=== PATIENT | male | born 2000 | race Two or more races ===

== ENCOUNTER 2024-11-14 06:06 | Emergency (ER) | payer MEDICAID, OTHER ==
[~2024-11-14] VITALS: Ht 167.6 cm; Wt 96.7 kg
[2024-11-14 06:09] VITALS: BP 128/88; PULSE 93; RESP 16; O2SAT 96
--- NOTE | 2024-11-14 07:08 | ED.PDOC ---
GI ASSESSMENT HPI Comments 24 year old male presents to the ED with a chief complaint of epigastric pain onset today around 05:00. Patient states he woke up today around 05:00 experiencing epigastric pain as well as nausea/vomiting. Patient describes the pain as a sharp, stabbing sensation. Denies PMHX as well as diarrhea, constipation, chest pain, shortness of breath, dysuria, hematuria, dizziness. No other symptoms or modifying factors present at this time. Chief Complaint: Abdominal Pain Time Seen by MD: 06:31 Reviewed Notes: Medications, Allergies Allergies: Coded Allergies: NO KNOWN ALLERGIES (Unverified , 11/14/24) Information Source: Patient Mode of Arrival: Ambulatory Timing: Hours Duration: Since onset Prehospital treatment: None Quality: Sharp Vomitus: None Severity: Moderate Recent: None Recent Hx of: None Pain Location: Epigastric Modifying Factors: Nothing Associated sign and symptoms: Nausea, Vomiting, Abdominal Pain Past Medical History PAST MEDICAL HISTORY: Denies Surgical History: Denies all surgeries Family History Family History: Unknown Social History Smoker: Non-Smoker Alcohol: Denies ETOH Use Drugs: Denies Drug Use Lives In: Home Constitutional: denies: chills, diaphoresis, fatigue, fever, malaise, sweats, weakness, others EENTM: denies: blurred vision, double vision, ear bleeding, ear discharge, ear drainage, ear pain, ear ringing, eye pain, eye redness, hearing loss, mouth pain, mouth swelling, nasal discharge, nose bleeding, nose congestion, nose pain, photophobia, tearing, throat pain, throat swelling, voice changes, others Respiratory: denies: cough, hemoptysis, orthopnea, SOB at rest, shortness of breath, SOB with excertion, stridor, wheezing, others Cardiovascular: denies: chest pain, dizzy spells, diaphoresis, Dyspnea on exertion, edema, irregular heart beat, left arm pain, lightheadedness, palpitations, PND, syncope, others Gastrointestinal: reports: abdominal pain, nausea, vomiting; denies: abdomen distended, blood streaked bowels, constipated, diarrhea, dysphagia, difficulty swallowing, hematemesis, melena, poor appetite, poor fluid intake, rectal bleeding, rectal pain, others Genitourinary: denies: burning, dysuria, flank pain, frequency, hematuria, incontinence, penile discharge, penile sore, pain, testicle pain, testicle swelling, urgency, others Neurological: denies: dizziness, fainting, headache, left sided numbness, left sided weakness, numbness, paresthesia, pre-existing deficit, right sided numbness, right sided weakness, seizure, speech problems, tingling, tremors, weakness, others Musculoskeletal: denies: back pain, gout, joint pain, joint swelling, muscle pain, muscle stiffness, neck pain, others Integumetry: denies: bruises, change in color, change in hair/nails, dryness, laceration, lesions, lumps, rash, wounds, others Allergic/Immunocompromised: denies: Difficulty Healing, Frequent Infections, Hives, Itching, others Hematologic/Lymphatic: denies: anemia, blood clots, easy bleeding, easy bruising, swollen glands, others Endocrine: denies: excessive hunger, excessive sweating, excessive thirst, excessive urination, flushing, intolerance to cold, intolerance to heat, unexplained weight gain, unexplained weight loss, others Psychiatric: denies: anxiety, bipolar disorder, depression, hopeless, panic disorder, schizophrenia, sleepless, suicidal, others All Other Systems: Reviewed and Negative Physical Exam General Appearance: Mild Distress HEENT: Normal ENT Inspection, Pharynx Normal, TMs Normal Neck: Full Range of Motion, Non-Tender, Normal, Normal Inspection Respiratory: Chest Non-Tender, Lungs Clear, No Accessory Muscle Use, No Respiratory Distress, Normal Breath Sounds Cardiovascular: No Edema, No JVD, No Murmur, No Gallop, Normal Peripheral Pulses, Regular Rate/Rhythm Breast Exam: Deferred Gastrointestinal: No Organomegaly, Non Tender, No Pulsatile Mass, Normal Bowel Sounds, Soft Genitalia: Deferred Pelvic: Deferred Rectal: Deferred Extremities: No calf tenderness, Normal capillary refill, Normal inspection, Normal range of motion, Non-tender, No pedal edema Musculoskeletal : Apperance: Normal Neurologic: Alert, retail account representative II-XII nml as Tested, No Motor Deficits, Normal Affect, Normal Mood, No Sensory Deficits Cerebellar Function: Normal Reflexes: Normal Skin: Dry, Normal Color, Warm Peripheral Pulses: 3+ Radial (R), 3+ Radial (L) Lymphatic: No Adenopathy Was a procedure done? Was a procedure done?: No GI differential Dx Differential Diagnosis: Constipation, Diverticular disease, Esophagitis, Gastritis/PUD, Gastroenteritis X-Ray, Labs, Meds, VS Vital Signs Date Time Temp Pulse Resp B/P (MAP) Pulse Ox O2 Delivery O2 Flow Rate FiO2 11/14/24 06:09 97.6 93 16 128/88 (101) 96 Patient alert. Vitals stable. Answering all questions. Possible gastritis. GI cocktail helped the patient. Was given prescription of Protonix. Saturation pristine on room air. Abdomen is soft nontender. No leg swelling. No chest pain. No discoloration. Explained to the patient. Was told to follow up with his primary care physician. Was told to come back if there is any problem. Time of 1ST Reevaluation: 07:01 Reevaluation 1ST: Improved Patient Education/Counseling: Diagnosis, Treatment, Prognosis Family Education/Counseling: No Family Present Additional Information I reviewed the following notes from patient's past medical encounters: none The following tests were ordered, and results were reviewed by me: CBC, BMP, DRUG SCREEN I discussed treatment and results with medical personnel and patient Departure 1 Departure Time of Disposition: 17:21 Impression: Primary Impression: Gastritis Qualified Codes: K29.00 - Acute gastritis without bleeding Disposition: 01 HOME / SELF CARE / HOMELESS Condition: Good e-Prescriptions Pantoprazole Sodium Sesquihydr (Protonix) 40 Mg Tab 40 MG PO DAILY for 5 Days, #5 TAB Prov: ASHTYN SLATER MD 11/14/24 Discharged With: Self Critical Care Note Critical Care Time?: No Stability Stability form required: No Heart Score Heart Score: Heart Score Response (Comments) Value History N/A 0 EKG N/A 0 Age N/A 0 Risk Factors N/A 0 Troponin N/A 0 Total 0 I personally scribed for ASHTYN SLATER MD ([email or web address]) on 11/14/24 at 07:08. Electronically submitted by Rowan Bolanos ([email or web address]). I personally scribed for ASHTYN SLATER MD ([email or web address]) on 11/14/24 at 07:28. Electronically submitted by Rowan Bolanos ([email or web address]). ASHTYN SLATER MD Nov 14, 2024 07:08
[2024-11-14] MEDS ORDERED: MAALOX PLUS or MAALOX 30 ML PO ONE (07:15)
[2024-11-14] MEDS ORDERED: LIDOCAINE VISCOUS 2% 15ML UD PO ONE (07:15)
[2024-11-14] MEDS ORDERED: DONNATAL 5ml ORAL Elix (BELLADONNA ALK-PHENOBARB) PO ONE (07:15)
[2024-11-14] MEDS ORDERED: PANT40TA2 PO (17:22)
== END 2024-11-14 07:58 | disposition home or self-care (01) ==
LOC: ER 06:06
DX: K29.70 Gastritis, unspecified, without bleeding (principal)

== ENCOUNTER 2025-07-20 11:15 | Inpatient (IN) | payer MEDICAID ==
[~2025-07-20] VITALS: Ht 170.2 cm; Wt 102.2 kg
[~2025-07-20 11:15] MED LIST: PANT40TA2 PO
--- NOTE | 2025-07-20 11:24 | ED.PDOC ---
GI ASSESSMENT HPI Comments This is a 24 year old male MIAH presenting to the ED with chief complaint of abdominal pain. Patient reports that he had sudden sharp abdominal pain this morning after waking up with associated nausea and vomiting. Patient describes his pain as if his "stomach exploded." Patient denies any diarrhea, fever, chills, dizziness, chest pain, or SOB. Time Seen by MD: 11:22 Reviewed Notes: Nurses Notes, Vice President Of Talent Management Notes, Medications, Allergies Allergies: Coded Allergies: NO KNOWN ALLERGIES (Unverified , 11/14/24) Home Meds Active Scripts Pantoprazole Sodium Sesquihydr (Protonix) 40 Mg Tab, 40 MG PO DAILY for 5 Days, #5 TAB Prov:ASHTYN SLATER MD 11/14/24 Information Source: Patient, Emergency Med Personnel Mode of Arrival: EMS Timing: Hours Duration: Since onset Prehospital treatment: None Quality: Sharp Vomitus: Watery Stool: Normal Severity: Moderate Recent: None Recent Hx of: None Pain Location: Diffuse Modifying Factors: Nothing Associated sign and symptoms: Nausea, Vomiting, Abdominal Pain Past Medical History PAST MEDICAL HISTORY: Denies Surgical History: Denies all surgeries Family History Family History: Reviewed,noncontributory to illness, Unknown Social History Smoker: Non-Smoker Alcohol: Denies ETOH Use Drugs: Denies Drug Use Lives In: Home Constitutional: denies: chills, diaphoresis, fatigue, fever, malaise, sweats, weakness, others EENTM: denies: blurred vision, double vision, ear bleeding, ear discharge, ear drainage, ear pain, ear ringing, eye pain, eye redness, hearing loss, mouth pain, mouth swelling, nasal discharge, nose bleeding, nose congestion, nose pain, photophobia, tearing, throat pain, throat swelling, voice changes, others Respiratory: denies: cough, hemoptysis, orthopnea, SOB at rest, shortness of breath, SOB with excertion, stridor, wheezing, others Cardiovascular: denies: chest pain, dizzy spells, diaphoresis, Dyspnea on exertion, edema, irregular heart beat, left arm pain, lightheadedness, palpitations, PND, syncope, others Gastrointestinal: reports: abdominal pain, nausea, vomiting; denies: abdomen distended, blood streaked bowels, constipated, diarrhea, dysphagia, difficulty swallowing, hematemesis, melena, poor appetite, poor fluid intake, rectal bleeding, rectal pain, others Genitourinary: denies: burning, dysuria, flank pain, frequency, hematuria, incontinence, penile discharge, penile sore, pain, testicle pain, testicle swelling, urgency, others Neurological: denies: dizziness, fainting, headache, left sided numbness, left sided weakness, numbness, paresthesia, pre-existing deficit, right sided numbness, right sided weakness, seizure, speech problems, tingling, tremors, weakness, others Musculoskeletal: denies: back pain, gout, joint pain, joint swelling, muscle pain, muscle stiffness, neck pain, others Integumetry: denies: bruises, change in color, change in hair/nails, dryness, laceration, lesions, lumps, rash, wounds, others Allergic/Immunocompromised: denies: Difficulty Healing, Frequent Infections, Hives, Itching, others Hematologic/Lymphatic: denies: anemia, blood clots, easy bleeding, easy bruising, swollen glands, others Endocrine: denies: excessive hunger, excessive sweating, excessive thirst, excessive urination, flushing, intolerance to cold, intolerance to heat, unexplained weight gain, unexplained weight loss, others Psychiatric: denies: anxiety, bipolar disorder, depression, hopeless, panic disorder, schizophrenia, sleepless, suicidal, others All Other Systems: Reviewed and Negative Physical Exam General Appearance: Moderate Distress, Normal HEENT: Normal ENT Inspection, Pharynx Normal, TMs Normal Neck: Full Range of Motion, Non-Tender, Normal, Normal Inspection Respiratory: Chest Non-Tender, Lungs Clear, No Accessory Muscle Use, No Respiratory Distress, Normal Breath Sounds Cardiovascular: No Edema, No JVD, No Murmur, No Gallop, Normal Peripheral P ulses, Regular Rate/Rhythm Breast Exam: Deferred Gastrointestinal: No Organomegaly, Non Tender, No Pulsatile Mass, Normal Bowel Sounds, Soft Genitalia: Deferred Pelvic: Deferred Rectal: Deferred Extremities: No calf tenderness, Normal capillary refill, Normal inspection, Normal range of motion, Non-tender, No pedal edema Musculoskeletal : Apperance: Normal Neurologic: Alert, car repairer II-XII nml as Tested, No Motor Deficits, Normal Affect, Normal Mood, No Sensory Deficits Cerebellar Function: Normal Reflexes: Normal Skin: Dry, Normal Color, Warm Peripheral Pulses: 3+ Radial (R), 3+ Radial (L) Lymphatic: No Adenopathy Was a procedure done? Was a procedure done?: No GI differential Dx Differential Diagnosis: Constipation, Diverticular disease, Esophagitis, Gastritis/PUD, Gastroenteritis X-Ray, Labs, Meds, VS Vital Signs Date Time Temp Pulse Resp B/P (MAP) Pulse Ox O2 Delivery O2 Flow Rate FiO2 07/20/25 11:21 98.1 66 16 133/84 99 98.1 Lab Test 07/20/25 11:25 Range/Units White Blood Count 11.9 H 4.4-10.8 10^3/uL Red Blood Count 5.14 4.5-5.90 10^6/uL Hemoglobin 15.2 13.5-17.5 g/dL Hematocrit 44.8 41.0-53.0 % Mean Corpuscular Volume 87.2 80.0-100.0 fL Mean Corpuscular Hemoglobin 29.6 28.0-32.0 pg Mean Corpuscular Hemoglobin Concent 33.9 32.0-36.0 g/dL Red Cell Distribution Width 13.2 11.8-14.3 % Platelet Count 252 140-450 10^3/uL Mean Platelet Volume 10.2 6.9-10.8 fL Neutrophils (%) (Auto) 84.4 H 37.0-80.0 % Lymphocytes (%) (Auto) 11.9 10.0-50.0 % Monocytes (%) (Auto) 2.3 0.0-12.0 % Eosinophils (%) (Auto) 1.0 0.0-7.0 % Basophils (%) (Auto) 0.4 0.0-2.0 % Neutrophils # (Auto) 10.0 H 1.6-8.6 10 ^3/uL Lymphocytes # (Auto) 1.4 0.4-5.4 10 ^3/uL Monocytes # (Auto) 0.3 0-1.3 10 ^3/uL Eosinophils # (Auto) 0.1 0-0.8 10 ^3/uL Basophils # (Auto) 0 0-0.2 10 ^3/uL Nucleated Red Blood Cells 0.0 % Sodium Level 140 136-145 mmol/L Potassium Level 4.2 3.5-5.1 mmol/L Chloride Level 104 98-107 mmol/L Carbon Dioxide Level 27 20-31 mmol/L Anion Gap 9 5-15 Blood Urea Nitrogen 10 9-23 mg/dL Creatinine 1.06 0.700-1.30 mg/dL Glomerular Filtration Rate Calc 100 >90 mL/min BUN/Creatinine Ratio 9.4 L 10.0-20.0 Serum Glucose 169 H 74-106 mg/dL Calcium Level 9.2 8.7-10.4 mg/dL Patient alert. Complaining of abdominal pain. WBC elevated. Blood sugar elevated. Hemoglobin within normal limits. Abdomen is soft. Explained to the patient. Continue monitoring. Time of 1ST Reevaluation: 12:21 Reevaluation 1ST: Unchanged Patient Education/Counseling: Diagnosis, Treatment Family Education/Counseling: No Family Present SEPSIS Sepsis Screen Physician Orders Drug Screen (07/20/25 11:21) Ct Ab Pel Wo Con-No Oral Or Iv (07/20/25 12:43) Vital Signs Date Time Temp Pulse Resp B/P (MAP) Pulse Ox O2 Delivery O2 Flow Rate FiO2 07/20/25 11:21 98.1 66 16 133/84 99 98.1 Laboratory Tests Test 07/20/25 11:25 White Blood Count 11.9 10^3/uL (4.4-10.8) H Departure 1 Departure Time of Disposition: 13:38 Impression: Primary Impression: Acute abdominal pain Disposition: ADMITTED INPATIENT Admit to: Med Surg Condition: Guarded Critical Care Note Critical Care Time?: No Stability Stability form required: No Heart Score Heart Score: Heart Score Response (Comments) Value History N/A 0 EKG N/A 0 Age N/A 0 Risk Factors N/A 0 Troponin N/A 0 Total 0 I personally scribed for ASHTYN SALTER MD ([email or web address]) on 07/20/25 at 11:24. Electronically submitted by Jayme Sanchez ([email or web address]). ASHTYN SLATER MD Jul 20, 2025 11:24
[2025-07-20 11:48] LABS: Hematocrit 44.8 % (41.0-53.0); Hemoglobin 15.2 g/dL (13.5-17.5); Mean Corpuscular Hemoglobin 29.6 pg (28.0-32.0); Mean Corpuscular Volume 87.2 fL (80.0-100.0); Nucleated Red Blood Cells % 0.0 %
[2025-07-20 11:54] LABS: Chloride 104 mmol/L (98-107); Potassium 4.2 mmol/L (3.5-5.1); Sodium 140 mmol/L (136-145)
[2025-07-20 11:55] LABS: Anion Gap 9 (5-15); Calcium 9.2 mg/dL (8.7-10.4); Carbon Dioxide 27 mmol/L (20-31)
[2025-07-20 12:00] LABS: BUN/Creatinine Ratio 9.4 (10.0-20.0); Blood Urea Nitrogen 10 mg/dL (9-23)
[2025-07-20 12:01] LABS: Glucose 169 mg/dL (74-106)
--- NOTE | 2025-07-20 13:41 | DVH ---
EXAM: CT CT AB PEL WO CON-NO ORAL OR IV INDICATION: colitis TECHNIQUE: Volumetric multidetector CT images of the abdomen and pelvis were obtained without contras t. All CT scans at this facility use dose modulation, iterative reconstruction, and/or weight based d osing when appropriate to reduce radiation dose to as low as reasonably achievable. COMPARISON: None FINDINGS: [LOWER CHEST]: The partially visualized lung bases are clear without a pleural effusion. The cardiac size is normal without pericardial effusion. [LIVER]: Hepatic steatosis. [GALLBLADDER AND BILIARY TREE]: No cholelithiasis. Question inconspicuous intramural wall edema of th e gallbladder. [SPLEEN]: Unremarkable. [PANCREAS]: Unremarkable. [ADRENAL GLANDS]: Unremarkable [KIDNEYS]: No hydronephrosis. No nephroureterolithiasis. [BLADDER]: Unremarkable for the degree distention. [REPRODUCTIVE ORGANS]: Unremarkable. [BOWEL/MESENTERY]: Stomach is normal. No CT evidence of bowel obstruction. [ASCITES]: Absent [LYMPHADENOPATHY]: Multiple likely reactive small bowel mesenteric root and ileocolic lymph nodes [VASCULATURE]: No aneurysmal dilatation. [ABDOMINAL WALL]: Unremarkable. [MUSCULOSKELETAL]: No acute fracture or aggressive focal osseous lesion. IMPRESSION: 1. No CT evidence of an acute abdominal/pelvic process. 2. No CT evidence of colitis. 3. Question inconspicuous intramural wall edema of the gallbladder. Consider correlation with right u pper quadrant ultrasound. 4. Question hepatic steatosis.
[2025-07-20 15:15] LABS: Amphetamine Screen, Urine Neg (NEGATIVE); Barbiturate Scree,Urine Neg (NEGATIVE); Benzodiazephine Screen, Urine Neg (NEGATIVE); Cannabinoid Screen, Urine Neg (NEGATIVE); Cocaine Screen, Urine Pos (NEGATIVE); Opiate Scree,Urine Neg (NEGATIVE); Phencyclidine Screen, Urine Neg (NEGATIVE)
[2025-07-20] MEDS: SODIUM CHLORIDE 0.9% 1,000 ML IV SCH (15:30)
[2025-07-20] MEDS ORDERED: ACETAMINOPHEN 325 MG TAB PO PRN (15:30)
[2025-07-20] MEDS ORDERED: NITROGLYCERIN 0.4 MG SL TAB SL PRN (15:30)
[2025-07-20] MEDS ORDERED: MORPHINE SULFATE INJ 2 MG/ml SYRG IV PRN (15:30)
--- NOTE | 2025-07-20 16:34 | DVH ---
ULTRASOUND ABDOMEN, LIMITED RIGHT UPPER QUADRANT: REASON FOR EXAM: alejandro. Right upper quadrant pain. TECHNIQUE: Real-time sector scans in the transverse and longitudinal planes were obtained through th e right upper quadrant of the abdomen. FINDINGS: The liver is of normal size and contour. The liver is profoundly echogenic. There is a 2.4 x 1.5 x 1.2 cm hypoechoic area of hepatic parenchyma adjacent to the gallbladder likely representing focal fatty sparing without hypervascularity on color Doppler. There is hepatopetal flow in the port al vein. There is no intrahepatic nor extrahepatic biliary ductal dilatation. The common bile duct measures 5 mm. There are gallstones within the gallbladder. The gallbladder wall is thickened at 5 mm. There is a sonographic morales's sign. The visualized portion of the pancreas is unremarkable. The right kidney measures 11.1 cm. No hydronephrosis or nephrolithiasis is identified. There is no evidence of right renal mass or cyst. The visualized portions of the abdominal aorta demonstrate no evidence of aneurysmal dilatation. The visualized inferior vena cava is unremarkable. There is no free fluid identified in the right upper quadrant. IMPRESSION: wall thickeningCholelithiasis with gallbladder and a sonographic Morales's sign. Findings are consiste nt with acute cholecystitis. Correlate clinically.
--- NOTE | 2025-07-20 17:07 | DVHPNRES ---
Progress Note Date Seen: Jul 20, 2025 Resident Creating Document: ALBERT CEDILLO RESIDENT Medical Necessity Reason Pt with a Central, PICC or Fol: No Subjective Review of Systems Parker Ball is a 24-year-old male presented to the ED with the complaint of pain in the abdomen. the patient mentions he has had pain in the abdomen on and off since the last 1 year, but it got worse this morning which is why he came to the ED. He mentions the pain to be mostly in the upper abdomen. It is not associated with any aggravating or relieving factors. Patient also had nausea and 2-3 episodes of vomiting this morning and has not eaten anything since then. CT abdomen showed questionable inconspicuous intramural wall edema of gallbladder. Gallbladder ultrasound was also ordered to evaluate further. Patient was admitted for further evaluation and management. Past medical history: no significant past history Past surgical history: surgery on right arm 15 years back for fracture Social & Personal history: lives at home with family, vapes since 5 years, alcohol consumption around 5-6 drinks per week, mentions remote use of marijuana in the past Allergies: on allergies Patient seen and examined at bedside. Patient is alert and oriented to time, place person and responding to all questions. Eyes: No Pain, No Vision change, No Conjunctivae inflammation, No Eyelid inflammation, No Redness ENT: No Ear pain, No Ear discharge, No Nose pain, No Nose discharge, No Nose congestion, No Mouth pain, No Mouth swelling, No Throat pain, No Throat swelling Cardiovascular: No Chest Pain, No Palpitations, No Orthopnea, No Paroxysmal No Dyspnea, No Edema, No Lt Headedness Respiratory: No Cough, No Dry, No Shortness of breath, No SOB with exertion, No Wheezing, No Hemoptysis, No Pleuritic Pain, No Sputum Gastrointestinal: No Nausea, No Vomiting, Abdominal Pain, No Diarrhea, No Constipation, No Melena, No Hematochezia Genitourinary: No Dysuria, No Frequency, No Incontinence, No Hematuria, No Retention Objective vital signs Vital Sign Date Time Temp Pulse Resp B/P (MAP) Pulse Ox O2 Delivery O2 Flow Rate FiO2 07/20/25 14:00 79 16 130/81 (97) 95 07/20/25 11:21 98.1 98.1 medications Current Medications Medications Dose Ordered Sig/Wendy Route Start Time Stop Time Status Last Admin Dose Admin Sodium Chloride 1,000 ml @ 60 mls/hr [id number] IV 07/20/25 15:30 Acetaminophen 650 mg Q6HP PRN PO 07/20/25 15:30 Nitroglycerin 0.4 mg Q5MINP PRN SL 07/20/25 15:30 Morphine Sulfate 2 mg Q30M PRN IV 07/20/25 15:30 Ceftriaxone Sodium 50 ml @ 100 mls/hr DAILY@09 IV 07/21/25 09:00 Metronidazole 100 ml @ 100 mls/hr Q8HR IV 07/20/25 22:00 Examination General Appearance: Cooperative. Well developed. Well nourished. NAD Head Exam: Normal inspection Neck Exam: Normal inspection. Non-tender. Normal alignment Pulmonary/Respiratory: Chest non-tender. Clear bilateral breath sounds, no crackles, no wheezing. Cardiovascular/Chest: Regular rate and rhythm. No murmurs. No JVD. Peripheral Pulses: 2+ Radial (R). 2+ Radial (L). 2+ Pedal (R). 2+ Pedal (L) Abdominal Exam: generalized abdominal tenderness, Normal bowel sounds. Soft. normal abdomen, no visible veins, Nontender. No hepatospenomegaly. No masses Ankle Exam: Negative ankle edema Lower extremities: Negative lower extremity edema Neuro/Mental Status: A&O x4. Coherent. Thoughts/Psych: Normal thought pattern. Appropriate mood and affect. Good judgement and insight Skin Exam: Normal inspection. Normal color. Warm. Dry laboratory and microbiology Laboratory Tests 07/20/25 11:25 Test 07/20/25 11:25 Range/Units Serum Glucose 169 H 74-106 mg/dL Labs and/or images reviewed: Labs reviewed by me, Image(s) reviewed by me Problem List/Assessment/Plan Problem List/Assessment/Plan Acute calculus cholecystitis Symptomatic cholelithiasis -med surge -keep NPO -IVF -iv ceftriaxone and flagyl -CT abdomen /pelvis and ultrasound showed findings suggestive of cholecystitis -Surgical consult Polysubstance abuse ( cocaine, fentanyl, marijuana ) -Consult regarding cessation for more than 17 minutes PUD prophylaxis: protonix DVT prophylaxis: not Indicated Goals of care: Full code, discussed for >23 minutes Plan discussed with patient Plan discussed with Dr Benton Plan discussed with: Patient My Orders My Orders Orders - ALBERT CEDILLO RESIDENT Procedure Category Date Status Time Admit ADMIT 07/20/25 Transmitted 15:19 Allergies [facility] 07/20/25 In Process 15:19 Code Status CODE 07/20/25 Transmitted 15:19 Sodium Chloride 0.9% [facility] 07/20/25 In Process 15:30 Complete Blood Count LAB 07/21/25 Verified 04:00 Comprehensive LAB 07/21/25 Verified Metabolic Panel 04:00 Npo (Nothing By DIET 07/20/25 Transmitted Mouth) Diet Dinner Condition: Unstable [facility] 07/20/25 In Process 15:19 Acetaminophen Tablet [facility] 07/20/25 In Process (Tylenol Tablet) 15:30 Nitroglycerin [facility] 07/20/25 In Process Sublingual (Ntrostat 15:30 Morphine Sulfate [facility] 07/20/25 In Process Injection 15:30 Oxygen By Nasal RT 07/20/25 Transmitted Cannula 15:19 Stat Ekg For Chest [facility] 07/20/25 In Process Pain 15:19 Notify Md Of Changes [facility] 07/20/25 In Process From Base 15:19 Network Architect For [facility] 07/20/25 In Process 24 Hours 15:19 Emergency Dysrhythmia [facility] 07/20/25 In Process Protocol 15:19 Rhythm Strips Once [facility] 07/20/25 In Process Every Shift 15:19 * Surgical Consult CONS 07/20/25 Transmitted Urinalysis LAB 07/20/25 Logged 16:06 Acute Hepatitis Panel LAB 07/20/25 In Process 16:06 Ceftriaxone 1gm/50ml [facility] 07/21/25 In Process (Rocephin) 09:00 Metronidazole [facility] 07/20/25 In Process 500mg/100ml (Flagyl 22:00 Metronidazole [facility] 07/20/25 In Process 500mg/100ml (Flagyl 16:15 Electrocardigram EKG 07/21/25 Logged 04:00 Prothrombin Time W/ LAB 07/21/25 Verified INR 04:00 ALBERT CEDILLO RESIDENT Jul 20, 2025 17:07
--- NOTE | 2025-07-20 18:13 | DVH ---
EXAM: XY CHEST XRAY 1 VIEW TECHNIQUE: Single frontal chest radiograph CLINICAL HISTORY: pre op COMPARISON: None Findings/Impression: Frontal chest radiograph demonstrates no acute osseous or superficial soft tissue abnormalities. The trachea is midline. The cardiac silhouette and mediastinum are within normal limits. No pneumothorax, pleural effusions, or consolidations.
[2025-07-20] MEDS: PANTOPRAZOLE 40 MG TAB PO ONE (20:03)
[2025-07-20 21:45] LABS: Urine Protein, UAD Negative (Negative)
[2025-07-21] VITALS (10 sets, daily range): BP systolic 100–130; BP diastolic 67–77; PULSE 59–92; RESP 11–20; TEMP 97.8–98.2; O2SAT 95–100
[2025-07-21] MEDS: PANTOPRAZOLE 40 MG TAB PO SCH (05:45)
[2025-07-21 08:43] LABS: Hematocrit 41.8 % (41.0-53.0); Hemoglobin 14.3 g/dL (13.5-17.5); Mean Corpuscular Hemoglobin 29.6 pg (28.0-32.0); Mean Corpuscular Volume 86.7 fL (80.0-100.0); Nucleated Red Blood Cells % 0.1 %
[2025-07-21 08:57] LABS: INR 1.0 (0.9-1.15); Prothrombin Time 10.6 sec (9.3-11.8)
[2025-07-21 08:59] LABS: Alanine Aminotransferase 31 U/L (7-40); Albumin 4.3 g/dL (3.2-4.8); Alkaline Phosphatase 90 U/L (46-116); Anion Gap 8 (5-15); BUN/Creatinine Ratio 9.6 (10.0-20.0); Bilirubin, Total 0.8 mg/dL (0.2-1.0); Blood Urea Nitrogen 12 mg/dL (9-23); Calcium 9.2 mg/dL (8.7-10.4); Carbon Dioxide 31 mmol/L (20-31); Chloride 104 mmol/L (98-107); Glucose 98 mg/dL (74-106); Potassium 3.8 mmol/L (3.5-5.1); Sodium 143 mmol/L (136-145); Total Protein 7.2 g/dL (5.7-8.2)
[2025-07-21] MEDS ORDERED: PROPOFOL 10 MG/ML 20 ML IV ONE (12:03)
[2025-07-21] MEDS ORDERED: ROCURONIUM 10MG/ML 10ML VIAL IV ONE (12:03)
[2025-07-21] MEDS ORDERED: HYDROmorphone HCL 2 MG/ML VL/or syr ONE (12:03)
[2025-07-21] MEDS ORDERED: fentaNYL CITRATE 100 MCG/2 ML VL ONE (12:03)
--- NOTE | 2025-07-21 12:07 | DVHINCON2 ---
Consultation - Surgical Date Seen: Jul 21, 2025 Referring Physician Reason for Consultation Cholecystitis History of Present Illness History of Present Illness Mr. Ball is a 24-year-old male who presented to the ED yesterday with right upper quadrant abdominal pain, nausea, vomiting. States that he has had this pain episodes in the past, last year he had 7-8 episodes, but never this bad. Pain has been well controlled in the ED with narcotic pain meds medicines. Denies any fevers, chills, changes in urinary or stooling habits, acholic stools. Past Medical/Surgical History Past Medical/Surgical History PMH/PSH denies Family and Social History Family and Social History Family history noncontributory Vapes ETOH/drugs denies Allergies and medications Allergies: Coded Allergies: NO KNOWN ALLERGIES (Unverified , 11/14/24) Home Meds Active Scripts Pantoprazole Sodium Sesquihydr (Protonix) 40 Mg Tab, 40 MG PO DAILY for 5 Days, #5 TAB Prov:ASHTYN SLATER MD 11/14/24 Review of systems Review of Systems: HEENT:Normal, CVS:Normal, RESPIRATORY:Normal, GI:Abnormal (See HPI), :Normal (Vitor), MSK:Normal (Vitor's Vitor), NEURO:Normal Examination Vital signs Vital Signs Date Time Temp Pulse Resp B/P (MAP) Pulse Ox O2 Delivery O2 Flow Rate FiO2 07/21/25 09:52 97.9 59 16 100/67 (78) 98 97.9 07/21/25 06:06 Room Air* 0 21 Medications Current Medications Medications (Trade) Dose Ordered Sig/Wendy Route PRN Reason Start Time Stop Time Status Last Admin Sodium Chloride 1,000 ml @ 60 mls/hr [id number] IV 07/20/25 15:30 07/21/25 08:18 Acetaminophen (Tylenol Tablet) 650 mg Q6HP PRN PO PAIN SCALE 1-3 OR TEMP>100.4 07/20/25 15:30 Nitroglycerin (Ntrostat Sublingual) 0.4 mg Q5MINP PRN SL FOR CHEST PAIN 07/20/25 15:30 Morphine Sulfate 2 mg Q30M PRN IV FOR CHEST PAIN 07/20/25 15:30 Ceftriaxone Sodium 50 ml @ 100 mls/hr DAILY@09 IV 07/21/25 09:00 07/21/25 08:30 Metronidazole 100 ml @ 100 mls/hr Q8HR IV 07/20/25 22:00 07/21/25 05:43 Pantoprazole Sodium (Protonix Tablet) 40 mg DAILY@0600 PO 07/21/25 06:00 Laboratory Labs Test 07/21/25 08:18 07/20/25 16:47 07/20/25 11:25 07/20/25 11:21 Range/Units White Blood Count 8.9 # 4.4-10.8 10^3/uL Red Blood Count 4.82 4.5-5.90 10^6/uL Hemoglobin 14.3 13.5-17.5 g/dL Hematocrit 41.8 41.0-53.0 % Mean Corpuscular Volume 86.7 80.0-100.0 fL Mean Corpuscular Hemoglobin 29.6 28.0-32.0 pg Mean Corpuscular Hemoglobin Concent 34.2 32.0-36.0 g/dL Red Cell Distribution Width 13.0 11.8-14.3 % Platelet Count 245 140-450 10^3/uL Mean Platelet Volume 10.2 6.9-10.8 fL Neutrophils (%) (Auto) 55.4 37.0-80.0 % Lymphocytes (%) (Auto) 33.0 10.0-50.0 % Monocytes (%) (Auto) 7.5 0.0-12.0 % Eosinophils (%) (Auto) 3.1 0.0-7.0 % Basophils (%) (Auto) 1.0 0.0-2.0 % Neutrophils # (Auto) 4.9 1.6-8.6 10 ^3/uL Lymphocytes # (Auto) 2.9 0.4-5.4 10 ^3/uL Monocytes # (Auto) 0.7 0-1.3 10 ^3/uL Eosinophils # (Auto) 0.3 0-0.8 10 ^3/uL Basophils # (Auto) 0.1 0-0.2 10 ^3/uL Nucleated Red Blood Cells 0.1 % Prothrombin Time 10.6 9.3-11.8 sec Prothrombin Time INR 1.00 0.9-1.15 Sodium Level 143 136-145 mmol/L Potassium Level 3.8 3.5-5.1 mmol/L Chloride Level 104 98-107 mmol/L Carbon Dioxide Level 31 20-31 mmol/L Anion Gap 8 5-15 Blood Urea Nitrogen 12 9-23 mg/dL Creatinine 1.25 0.700-1.30 mg/dL Glomerular Filtration Rate Calc 82 >90 mL/min BUN/Creatinine Ratio 9.6 L 10.0-20.0 Serum Glucose 98 74-106 mg/dL Calcium Level 9.2 8.7-10.4 mg/dL Total Bilirubin 0.8 0.2-1.0 mg/dL Aspartate Amino Transferase (AST) 17 13-40 U/L Alanine Aminotransferase (ALT) 31 7-40 U/L Alkaline Phosphatase 90 46-116 U/L Total Protein 7.2 5.7-8.2 g/dL Albumin 4.3 3.2-4.8 g/dL Lipase 34 12-53 U/L Urine Color Yellow Yellow Urine Clarity Clear Clear Urine pH 5.5 5.0-9.0 Urine Specific [place] 1.027 1.001-1.035 Urine Protein Negative Negative Urine Ketones Negative Negative Urine Blood Negative Negative /uL Urine Nitrite Negative Negative Urine Bilirubin Negative Negative Urine Urobilinogen Normal Negative mg/dL Urine Leukocyte Esterase Negative Negative /uL Urine RBC 2 0 - 3 /hpf Urine Microscopic WBC < 1 0-3 /HPF Urine Squamous Epithelial Cells Few <5 /hpf Urine Calcium Oxalate Crystals Few None Seen Urine Bacteria None seen None Seen /hpf Urine Mucus Few None Seen Urine Glucose Normal Normal mg/dL Urine Opiates Screen Neg NEGATIVE Urine Fentanyl Screen Pos NEGATIVE Urine Barbiturates Screen Neg NEGATIVE Urine Phencyclidine Screen Neg NEGATIVE Urine Amphetamines Screen Neg NEGATIVE Urine Benzodiazepines Screen Neg NEGATIVE Urine Cocaine Screen Pos NEGATIVE Urine Cannabinoids Screen Neg NEGATIVE Examination: GENERAL:Normal, HEENT:Normal (No icterus), ABDOMEN:Abnormal (Soft, depressible, no scars, no hernias, right upper quadrant tenderness, no rebound no guarding) Problem List/Assessment/Plan Problems: (1) Acute cholecystitis Assessment and Plan Mr. Ball is a 24-year-old male who presented to the ED with abdominal pain, nausea, vomiting. Ultrasound was seen in his shows gallstone at the neck gallbladder and multiple other stones in the gallbladder wall lumen; there is also pericholecystic fluid and gallbladder wall thickening to 5.22 mm. On pr esentation patient had a white count of 12. Given this findings on imaging and physical exam patient has acute cholecystitis. He will benefit from laparoscopic cholecystectomy. Procedure, risks, benefits, complications, and alternatives discussed with the patient. Patient is agreeable with surgical plan. 1. On-call to the OR for laparoscopic cholecystectomy, possible open 2. NPO pending procedure 3. Pain and nausea control Plan discussed with Plan discussed with: Patient Visit Coding Surgery Date of Service if different f: Jul 21, 2025 Billing Provider: JAMA VERDIN MD Surgery Visit Codes: 53534 - INP CONSULT <110 MIN JAMA VERDIN MD Jul 21, 2025 12:07
[2025-07-21] MEDS: ceFAZolin 2 GM/D5W50ml 50 ML IV ONE (12:28)
[2025-07-21] MEDS ORDERED: ONDANSETRON HCL 4 MG/2 ML VIAL ONE (12:43)
[2025-07-21] MEDS: BUPIVACAINE 0.25% INJ 50ML VIAL ONE (12:47)
[2025-07-21] MEDS ORDERED: ONDANSETRON HCL 4 MG/2 ML VIAL IV PRN (14:15)
[2025-07-21] MEDS: SUCCINYLCHOLINE CHLORIDE 20 MG/ML 10ML VIAL IV ONE (14:21)
--- NOTE | 2025-07-21 14:23 | DVHOP2 ---
Operative Report - 2 Report Details Date: 07/21/25 Preop Diagnosis: Acute cholecystitis Postop Diagnosis: Same Surgeon: Hossein Ortiz MD Anesthesiologist: Dr. Holliday Anesthesia: General Consent: The patient was informed of the risks and benefits of the procedure. These include but are not limited to complications of anesthesia, postoperative infection, incomplete relief of symptoms, recurrence of symptoms, damage to blood vessels, nerves and tendons, deep venous thrombosis, pulmonary embolism and possible need for repeat surgery in the future. Complications: None Estimated Blood Loss: 5 mL Findings: Acutely inflamed gallbladder with omental adhesions to gallbladder containing loops of bowel Indications for Surgery: Acute cholecystitis Name of Procedure Performed Laparoscopic cholecystectomy Procedure Details Procedure Details: Upon arriving to the operating room the patient was transferred to the operating table and placed in the supine position with arms extended. General endotracheal anesthesia was induced. Time-out was observed. Patient was pre pped and draped in the standard sterile surgical fashion with chlorhexidine. I then made an infraumbilical curvilinear incision, and then dissected down to fascia. I grasped the umbilical stalk sequentially with Josiah clamps, until I got to the base of the umbilical stalk. I then gained entry to the peritoneal cavity utilizing Richardson technique. I then placed a fascia retention suture in [id number] fashion with an 0 Vicryl. I then placed the Richardson cannula and insufflated the peritoneal cavity to 15 mmHg. Patient tolerated insufflation. Camera was then inserted and entry site was surveyed, no injuries noted. I then placed 3 additional 5 mm ports at the epigastric area, the right midclavicular area below the ribs, and the right flank. The patient was then position in the reverse Trendelenburg position with right side up. Gallbladder dome was grasped with D&G graspers and elevated towards the right shoulder. Gallbladder was acutely inflamed with omentum containing loops of bowel was draped over the gallbladder. I then carefully dissected the omentum and the loops of bowel off of the gallbladder. I then identify the infundibulum of the gallbladder and grasped it with a 2nd D&G grasper. I then proceeded to open the peritoneum along the inferior border of the gallbladder on either side. I then identified Calot triangle. Calot triangle was fully skeletonized and 2 structures were visualized entering the gallbladder, the cystic duct and the cystic artery. Critical view was obtained. Artery was then double clipped proximally and once distally. The duct was then triple clipped proximally and once distally. I then transected both artery and duct. I then proceeded to dissect the gallbladder off of the liver plate with the electrocautery device. Once the gallbladder was completely off of the liver it was placed in the Endo-Catch bag and removed from the peritoneal cavity through the umbilical site. Gallbladder fossa was surveyed there was no bleeding. There was no bile spillage. At this point the surgery was concluded. 5 mm trocars were removed under direct vision. The fascia at the umbilical site was closed with the previously-placed 0 Vicryl stitch. All skin sites were closed with 4-0 Monocryl and Dermabond. Marcaine 0.25% was used as local anesthetic. All counts complete and correct at the end of the procedure. Patient was transferred to the PACU in stable condition Specimen: Gallbladder and contents Condition Stable Disposition Still a Patient HOSSEIN VERDIN MD Jul 21, 2025 14:23
[2025-07-21] MEDS: ACETAMINOPHEN IV 1000 MG/100ML (10MG/ML) IV PRN (15:00)
[2025-07-21] MEDS: ACETAMINOPHEN IV 100 ML IV ONE (15:18)
[2025-07-21] MEDS: HYDROmorphone HCL 2 MG/ML VL/or syr IV PRN (16:14)
[2025-07-21] MEDS: HYDROmorphone HCL 2 MG/ML VL/or syr ONE (16:17)
[2025-07-21] MEDS: IBUPROFEN 600 MG TAB PO SCH (17:55)
[2025-07-21] MEDS: ACETAMINOPHEN 325 MG TAB PO SCH (17:55)
--- NOTE | 2025-07-21 18:47 | DVHPNRES ---
Progress Note Date Seen: Jul 21, 2025 Resident Creating Document: ALBERT CEDILLO RESIDENT Medical Necessity Reason Pt with a Central, PICC or Fol: No Subjective Review of Systems Parker Ball is a 24-year-old male presented to the ED with the complaint of pain in the abdomen. the patient mentions he has had pain in the abdomen on and off since the last 1 year, but it got worse this morning which is why he came to the ED. He mentions the pain to be mostly in the upper abdomen. It is not associated with any aggravating or relieving factors. Patient also had nausea and 2-3 episodes of vomiting this morning and has not eaten anything since then. CT abdomen showed questionable inconspicuous intramural wall edema of gallbladder. Gallbladder ultrasound was also ordered to evaluate further. Patient was admitted for further evaluation and management. Past medical history: no significant past history Past surgical history: surgery on right arm 15 years back for fracture Social & Personal history: lives at home with family, vapes since 5 years, alcohol consumption around 5-6 drinks per week, mentions remote use of marijuana in the past Allergies: on allergies Patient seen and examined at bedside. Patient is alert and oriented to time, place person and responding to all questions. Eyes: No Pain, No Vision change, No Conjunctivae inflammation, No Eyelid inflammation, No Redness ENT: No Ear pain, No Ear discharge, No Nose pain, No Nose discharge, No Nose congestion, No Mouth pain, No Mouth swelling, No Throat pain, No Throat swelling Cardiovascular: No Chest Pain, No Palpitations, No Orthopnea, No Paroxysmal No Dyspnea, No Edema, No Lt Headedness Respiratory: No Cough, No Dry, No Shortness of breath, No SOB with exertion, No Wheezing, No Hemoptysis, No Pleuritic Pain, No Sputum Gastrointestinal: No Nausea, No Vomiting, Abdominal Pain, No Diarrhea, No Constipation, No Melena, No Hematochezia Genitourinary: No Dysuria, No Frequency, No Incontinence, No Hematuria, No Retention 07/21- Patient was seen this morning. All vitals were stable and labs within range. The patient did not complain of any abdominal pain. No adverse events were noted overnight. Surgery was consulted and they performed lap cholecystectomy with no perioperative complications. The patient is doing well post surgery. Objective vital signs Vital Sign Date Time Temp Pulse Resp B/P (MAP) Pulse Ox O2 Delivery O2 Flow Rate FiO2 07/21/25 17:00 97.8 61 18 130/69 (89) 98 97.8 07/21/25 16:13 Nasal Cannula 1.0 07/21/25 16:13 95 medications Current Medications Medications Dose Ordered Sig/Wendy Route Start Time Stop Time Status Last Admin Dose Admin Sodium Chloride 1,000 ml @ 60 mls/hr [id number] IV 07/20/25 15:30 07/21/25 08:18 60 MLS/HR Nitroglycerin 0.4 mg Q5MINP PRN SL 07/20/25 15:30 Morphine Sulfate 2 mg Q30M PRN IV 07/20/25 15:30 Ceftriaxone Sodium 50 ml @ 100 mls/hr DAILY@09 IV 07/21/25 09:00 07/21/25 08:30 100 MLS/HR Metronidazole 100 ml @ 100 mls/hr Q8HR IV 07/20/25 22:00 07/21/25 14:34 100 MLS/HR Pantoprazole Sodium 40 mg DAILY@0600 PO 07/21/25 06:00 Acetaminophen/ Hydrocodone Bitart 1 tab Q6HP PRN PO 07/21/25 14:15 Acetaminophen/ Hydrocodone Bitart 1 tab Q6HPRN PRN PO 07/21/25 14:15 Acetaminophen 650 mg Q6HR PO 07/21/25 18:00 07/21/25 17:55 650 MG Ibuprofen 600 mg Q6HR PO 07/21/25 18:00 07/21/25 17:55 600 MG Polyethylene Glycol 17 gm DAILY PO 07/22/25 10:00 Examination General Appearance: Cooperative. Well developed. Well nourished. NAD Head Exam: Normal inspection Neck Exam: Normal inspection. Non-tender. Normal alignment Pulmonary/Respiratory: Chest non-tender. Clear bilateral breath sounds, no crackles, no wheezing. Cardiovascular/Chest: Regular rate and rhythm. No murmurs. No JVD. Peripheral Pulses: 2+ Radial (R). 2+ Radial (L). 2+ Pedal (R). 2+ Pedal (L) Abdominal Exam: generalized abdominal tenderness, abdominal binder in place, Normal bowel sounds. Soft. normal abdomen, no visible veins, Nontender. No hepatospenomegaly. No masses Ankle Exam: Negative ankle edema Lower extremities: Negative lower extremity edema Neuro/Mental Status: A&O x4. Coherent. Thoughts/Psych: Normal thought pattern. Appropriate mood and affect. Good judgement and insight Skin Exam: Normal inspection. Normal color. Warm. Dry laboratory and microbiology Laboratory Tests 07/21/25 08:18 Test 07/21/25 08:18 Range/Units Serum Glucose 98 74-106 mg/dL Labs and/or images reviewed: Labs reviewed by me, Image(s) reviewed by me Problem List/Assessment/Plan Problem List/Assessment/Plan Acute calculus cholecystitis s/p lap cholecystectomy Symptomatic cholelithiasis -med surge -keep NPO -IVF -iv ceftriaxone and flagyl -CT abdomen /pelvis and ultrasound showed findings suggestive of cholecystitis -Surgical consult evaluated the patient -postoperative day 0 status post laparoscopic cholecystectomy, patient tolerated the procedure well. -advancing diet as tolerated from tomorrow Polysubstance abuse ( cocaine, fentanyl, marijuana ) -Consult regarding cessation for more than 17 minutes PUD prophylaxis: protonix DVT prophylaxis: not Indicated Goals of care: Full code, discussed for >23 minutes Plan discussed with patient Plan discussed with Dr Benton Plan discussed with: Patient My Orders My Orders Orders - ALBERT CEDILLO RESIDENT Procedure Category Date Status Time * Surgical Consult CONS 07/21/25 Transmitted 08:30 ALBERT CEDILLO RESIDENT Jul 21, 2025 18:47 COTY RAZO RESIDENT Jul 22, 2025 09:54
[2025-07-21] MEDS ORDERED: ONDANSETRON HCL 4 MG/2 ML VIAL IV ONE (19:15)
[2025-07-21] MEDS: ONDANSETRON HCL 4 MG/2 ML VIAL IV PRN (21:01)
[2025-07-21] MEDS: MORPHINE SULFATE INJ 2 MG/ml SYRG IV ONE (21:12)
[2025-07-21] MEDS: HYDROcodone-ACET 10/325MG TAB PO PRN (22:10)
[2025-07-22 01:00] VITALS: BP 128/86; PULSE 75; RESP 18; TEMP 98.4; O2SAT 98
[2025-07-22 05:00] VITALS: BP 124/66; PULSE 83; RESP 17; TEMP 97.8; O2SAT 96
[2025-07-22 05:45] LABS: Hematocrit 41.8 % (41.0-53.0); Hemoglobin 14.1 g/dL (13.5-17.5); Mean Corpuscular Hemoglobin 29.6 pg (28.0-32.0); Mean Corpuscular Volume 87.6 fL (80.0-100.0); Nucleated Red Blood Cells % 0.0 %
[2025-07-22 06:10] LABS: Albumin 4.1 g/dL (3.2-4.8); Alkaline Phosphatase 88 U/L (46-116); Anion Gap 12 (5-15); BUN/Creatinine Ratio 7.3 (10.0-20.0); Bilirubin, Total 0.8 mg/dL (0.2-1.0); Calcium 9.0 mg/dL (8.7-10.4); Carbon Dioxide 26 mmol/L (20-31); Chloride 100 mmol/L (98-107); Potassium 3.9 mmol/L (3.5-5.1); Sodium 138 mmol/L (136-145); Total Protein 7.0 g/dL (5.7-8.2)
[2025-07-22 06:11] LABS: Alanine Aminotransferase 40 U/L (7-40); Blood Urea Nitrogen 8 mg/dL (9-23); Glucose 114 mg/dL (74-106)
[2025-07-22 08:00] VITALS: PULSE 69; RESP 14; O2SAT 96
[2025-07-22] MEDS: POLYETHYLENE GLYCOL 17 GM PWDR PO SCH (08:39)
[2025-07-22 08:48] VITALS: BP 120/77; PULSE 69; RESP 14; TEMP 97.5; O2SAT 97
[2025-07-22] MEDS: HYDROcodone-ACET 5/325MG TAB PO PRN (08:51)
[2025-07-22] MEDS ORDERED: MORPHINE SULFATE INJ 2 MG/ml SYRG IV PRN (09:45)
[2025-07-22] MEDS: MORPHINE SULFATE INJ 2 MG/ml SYRG IV ONE (10:53)
--- NOTE | 2025-07-22 11:08 | DVHPN2 ---
Progress Note - Surgical Date Seen: Jul 22, 2025 Post op day Post op day: 1 Subjective Patient reports: Feels better (On postop day serial patient was feeling nauseous after coming off of the anesthesia and did not want to eat much, this morning feeling much better having some right upper quadrant pain but tolerating diet. Patient feels better when he ambulates. He is afebrile with vital signs stable) Review of Systems: Deferred Objective Vital signs Vital Sign Date Time Temp Pulse Resp B/P (MAP) Pulse Ox O2 Delivery O2 Flow Rate FiO2 07/22/25 10:53 69 14 120/77 07/22/25 08:48 97.5 97 97.5 07/21/25 20:00 Room Air* 0 21 Total Intake and Output 07/21/25 07/21/25 07/22/25 15:00 23:00 07:00 Intake Total 150 ml 100 ml 360 ml Output Total 500 ml Balance 150 ml 100 ml -140 ml Medications Current Medications Medications Dose Ordered Sig/Wendy Route Start Time Stop Time Status Last Admin Dose Admin Sodium Chloride 1,000 ml @ 60 mls/hr [id number] IV 07/20/25 15:30 07/21/25 08:18 60 MLS/HR Nitroglycerin 0.4 mg Q5MINP PRN SL 07/20/25 15:30 Ceftriaxone Sodium 50 ml @ 100 mls/hr DAILY@09 IV 07/21/25 09:00 07/22/25 08:39 100 MLS/HR Metronidazole 100 ml @ 100 mls/hr Q8HR IV 07/20/25 22:00 07/22/25 05:37 100 MLS/HR Pantoprazole Sodium 40 mg DAILY@0600 PO 07/21/25 06:00 07/22/25 05:27 40 MG Acetaminophen/ Hydrocodone Bitart 1 tab Q6HP PRN PO 07/21/25 14:15 07/22/25 05:33 1 TAB Acetaminophen 650 mg Q6HR PO 07/21/25 18:00 07/22/25 05:26 650 MG Ibuprofen 600 mg Q6HR PO 07/21/25 18:00 07/22/25 05:27 600 MG Polyethylene Glycol 17 gm DAILY PO 07/22/25 10:00 07/22/25 08:39 17 GM Ondansetron HCl 4 mg Q4HPRN PRN IV 07/21/25 19:15 07/22/25 00:57 4 MG Morphine Sulfate 2 mg Q6HPRN PRN IV 07/22/25 09:45 Laboratory Laboratory Tests 07/22/25 05:10 Test 07/22/25 05:10 Range/Units Serum Glucose 114 H 74-106 mg/dL Examination: GENERAL:Normal, HEENT:Normal (No icterus), ABDOMEN:Normal (Nondistended, incision sites with skin glue in place, incision sites without surrounding erythema/edema/pus/drainage, mild right upper quadrant tenderness, no rebound, no guarding) Labs and/or images reviewed: Labs reviewed by me (Slight elevation in white count likely reactive to surgery) Problem List/Assessment/Plan Problems: (1) Acute cholecystitis Assessment and Plan Mr. Ball is a 24-year-old male currently postop day 1 from laparoscopic cholecystectomy due to acute cholecystitis. Patient is doing well this a.m., some right upper quadrant pain complaints, but tolerating diet. Slight white count elevation likely reactive to the surgery. Patient was ambulating, tolerating diet. From surgical standpoint patient can be discharged home. 1. Okay to discharge 2. [place] 5/325 mg p.o. every 6 hours p.r.n. severe pain 3. Baseline pain control with Tylenol 650 mg 1 tab p.o. every 6 hours and ibuprofen 600 mg 1 tab p.o. every 6 hours 4. MiraLax 1 packet daily 5. No lifting over 10 lb for 6 weeks 6. May shower today, soap and water okay to run over incisions 7. No swimming or bathing for 2 weeks 8. Follow-up at surgery Clinic with Dr. Amaro in 2 weeks 9. Low-fat diet My Orders My Orders Orders - JAMA VERDIN MD Procedure Category Date Status Time Clear Liq Diet DIET 07/21/25 Transmitted Dinner Hydrocodone-Acet PHA 07/21/25 In Process 10/325mg Tab ([place] 14:15 Acetaminophen Tablet PHA 07/21/25 In Process (Tylenol Tablet) 18:00 Ibuprofen Tablet PHA 07/21/25 In Process (Motrin Tablet) 18:00 Polyethylene Glycol PHA 07/22/25 In Process 17g Powder (Miralax 10:00 Abdominal Binder BABAK 07/21/25 In Process 14:08 Early Ambulation BABAK 07/21/25 In Process 14:08 Out Of Bed Ambulate BABAK 07/21/25 In Process 14:08 Plan discussed with Plan discussed with: Patient Visit Coding Surgery Date of Service if different f: Jul 22, 2025 Billing Provider: JAMA VERDIN MD Surgery Visit Codes: [id number] INP/OBS CARE(MOD) JAMA VERDIN MD Jul 22, 2025 11:08
[2025-07-22] MEDS ORDERED: HYDR-4902 PO (11:09)
[2025-07-22 11:15] LABS: Hepatitis B Surface Antigen Negative (Negative)
[2025-07-22 11:30] VITALS: BP 105/73; PULSE 56; RESP 14; TEMP 97.2; O2SAT 99
[2025-07-22 11:42] LABS: Hepatitis C Antibody Negative (Negative)
[2025-07-22] MEDS ORDERED: AUG875T PO (12:29)
[2025-07-22] MEDS ORDERED: IBU600T PO (12:29)
[2025-07-22] MEDS ORDERED: ACET-1882 PO (12:29)
--- NOTE | 2025-07-22 13:26 | DVHDSRES ---
Discharge Summary Date of Admission Resident Creating Document: ALBERT CEDILLO RESIDENT Jul 20, 2025 at 15:19 Date of Discharge: Jul 22, 2025 Admitting Diagnosis acute cholecystitis Labs/Diagnostic Data: Laboratory Results Test 07/22/25 05:10 07/21/25 08:18 07/20/25 16:47 07/20/25 11:25 White Blood Count 12.6 10^3/uL (4.4-10.8) Red Blood Count 4.77 10^6/uL (4.5-5.90) Hemoglobin 14.1 g/dL (13.5-17.5) Hematocrit 41.8 % (41.0-53.0) Mean Corpuscular Volume 87.6 fL (80.0-100.0) Mean Corpuscular Hemoglobin 29.6 pg (28.0-32.0) Mean Corpuscular Hemoglobin Concent 33.8 g/dL (32.0-36.0) Red Cell Distribution Width 13.0 % (11.8-14.3) Platelet Count 260 10^3/uL (140-450) Mean Platelet Volume 10.5 fL (6.9-10.8) Neutrophils (%) (Auto) 88.5 % (37.0-80.0) Lymphocytes (%) (Auto) 7.3 % (10.0-50.0) Monocytes (%) (Auto) 3.8 % (0.0-12.0) Eosinophils (%) (Auto) 0.0 % (0.0-7.0) Basophils (%) (Auto) 0.4 % (0.0-2.0) Neutrophils # (Auto) 11.1 10 ^3/uL (1.6-8.6) Lymphocytes # (Auto) 0.9 10 ^3/uL (0.4-5.4) Monocytes # (Auto) 0.5 10 ^3/uL (0-1.3) Eosinophils # (Auto) 0 10 ^3/uL (0-0.8) Basophils # (Auto) 0.1 10 ^3/uL (0-0.2) Nucleated Red Blood Cells 0.0 % Sodium Level 138 mmol/L (136-145) Potassium Level 3.9 mmol/L (3.5-5.1) Chloride Level 100 mmol/L (98-107) Carbon Dioxide Level 26 mmol/L (20-31) Anion Gap 12 (5-15) Blood Urea Nitrogen 8 mg/dL (9-23) Creatinine 1.10 mg/dL (0.700-1.30) Glomerular Filtration Rate Calc 96 mL/min (>90) BUN/Creatinine Ratio 7.3 (10.0-20.0) Serum Glucose 114 mg/dL (74-106) Calcium Level 9.0 mg/dL (8.7-10.4) Total Bilirubin 0.8 mg/dL (0.2-1.0) Aspartate Amino Transferase (AST) 35 U/L (13-40) Alanine Aminotransferase (ALT) 40 U/L (7-40) Alkaline Phosphatase 88 U/L (46-116) Total Protein 7.0 g/dL (5.7-8.2) Albumin 4.1 g/dL (3.2-4.8) Prothrombin Time 10.6 sec (9.3-11.8) Prothrombin Time INR 1.00 (0.9-1.15) Hepatitis A IgM Antibody Negative Hepatitis B Surface Antigen Negative (Negative) Hepatitis B Core IgM Antibody Negative (Negative) Hepatitis C Antibody Negative (Negative) Lipase 34 U/L (12-53) Test 07/20/25 11:21 Urine Color Yellow (Yellow) Urine Clarity Clear (Clear) Urine pH 5.5 (5.0-9.0) Urine Specific [place] 1.027 (1.001-1.035) Urine Protein Negative (Negative) Urine Ketones Negative (Negative) Urine Blood Negative /uL (Negative) Urine Nitrite Negative (Negative) Urine Bilirubin Negative (Negative) Urine Urobilinogen Normal mg/dL (Negative) Urine Leukocyte Esterase Negative /uL (Negative) Urine RBC 2 /hpf (0 - 3) Urine Microscopic WBC < 1 /HPF (0-3) Urine Squamous Epithelial Cells Few /hpf (<5) Urine Calcium Oxalate Crystals Few (None Seen) Urine Bacteria None seen /hpf (None Seen) Urine Mucus Few (None Seen) Urine Glucose Normal mg/dL (Normal) Urine Opiates Screen Neg (NEGATIVE) Urine Fentanyl Screen Pos (NEGATIVE) Urine Barbiturates Screen Neg (NEGATIVE) Urine Phencyclidine Screen Neg (NEGATIVE) Urine Amphetamines Screen Neg (NEGATIVE) Urine Benzodiazepines Screen Neg (NEGATIVE) Urine Cocaine Screen Pos (NEGATIVE) Urine Cannabinoids Screen Neg (NEGATIVE) Other Laboratory Tests 07/22/25 05:10 Brief Hx & Hospital Course: Parker Ball is a 24-year-old male who presented to the ED with the complaint of pain in the abdomen. The patient mentions he has had pain in the abdomen on and off since the last 1 year, but it got worse this morning which is why he came to the ED. He mentions the pain to be mostly in the upper abdomen. It is not associated with any aggravating or relieving factors. Patient also had nausea and 2-3 episodes of vomiting this morning and has not eaten anything since then. CT abdomen showed questionable inconspicuous intramural wall edema of gallbladder. Gallbladder ultrasound was also ordered to evaluate further. Patient was admitted for further evaluation and management. Gall bladder ultrasound showed wall thickening,Cholelithiasis and a sonographic Morales's sign. Surgery was consulted and they performed laparoscopic cholecystectomy on 07/21/2025 with an uneventful perioperative course. Vitals remained stable post surgery with no adverse events noted overnight. Patient was given IV medication for pain management and diet was advanced slowly which he tolerated without any nausea. The patient was cleared by surgery for discharge. All medications and recommendations were thoroughly explained to the patient and he demonstrated understanding of the same. Questions were answered and all concerns were addressed. Patient was discharged home in a stable condition with an abdominal binder and was asked to follow-up with GI in 2 weeks. Past medical history: no significant past history Past surgical history: surgery on right arm 15 years back for fracture Social & Personal history: lives at home with family, vapes since 5 years, alcohol consumption around 5-6 drinks per week, mentions remote use of marijuana in the past Allergies: no known allergies General Appearance: Cooperative. Well developed. Well nourished. NAD Head Exam: Normal inspection Neck Exam: Normal inspection. Non-tender. Normal alignment Pulmonary/Respiratory: Chest non-tender. Clear bilateral breath sounds, no crackles, no wheezing. Cardiovascular/Chest: Regular rate and rhythm. No murmurs. No JVD. Peripheral Pulses: 2+ Radial (R). 2+ Radial (L). 2+ Pedal (R). 2+ Pedal (L) Abdominal Exam: generalized abdominal tenderness, abdominal binder in place with 3 surgical scars, Normal bowel sounds. Soft. normal abdomen, no visible veins, Nontender. No hepatospenomegaly. No masses Ankle Exam: Negative ankle edema Lower extremities: Negative lower extremity edema Neuro/Mental Status: A&O x4. Coherent. Thoughts/Psych: Normal thought pattern. Appropriate mood and affect. Good judgement and insight Skin Exam: Normal inspection. Normal color. Warm. Dry Discharge plan -follow up with surgery in 2 weeks -Augmentin p.o. daily for 5 days -[place] 5 every 6 hours p.r.n. for pain -Miralax powder 1 packet every day for 1 week Operations or Procedures 1.PROCEDURE(s): ABPL - CT AB PEL WO CON-NO ORAL OR IV REASON: colitis ORDER NUMBER(s): [id number], ACCESSION NUMBER(s): [id number] IMPRESSION: 1. No CT evidence of an acute abdominal/pelvic process. 2. No CT evidence of colitis. 3. Question inconspicuous intramural wall edema of the gallbladder. Consider correlation with right upper quadrant ultrasound. 4. Question hepatic steatosis. 2.PROCEDURE(s): GBUS - GALLBLADDER REASON: alejandro ORDER NUMBER(s): [id number], ACCESSION NUMBER(s): [id number] IMPRESSION: wall thickeningCholelithiasis with gallbladder and a sonographic Morales's sign. Findings are consistent with acute cholecystitis. Correlate clinically. 3.PROCEDURE(s): CXR1 - CHEST XRAY 1 VIEW REASON: pre op ORDER NUMBER(s): [id number], ACCESSION NUMBER(s): [id number] Findings/Impression: Frontal chest radiograph demonstrates no acute osseous or superficial soft tissue abnormalities. The trachea is midline. The cardiac silhouette and mediastinum are within normal limits. No pneumothorax, pleural effusions, or consolidations. 4.Preop Diagnosis: Acute cholecystitis Postop Diagnosis: Same Findings: Acutely inflamed gallbladder with omental adhesions to gallbladder containing loops of bowel Indications for Surgery: Acute cholecystitis Name of Procedure Performed Laparoscopic cholecystectomy Procedure Details Procedure Details: Upon arriving to the operating room the patient was transferred to the operating table and placed in the supine position with arms extended. General endotracheal anesthesia was induced. Time-out was observed. Patient was prepped and draped in the standard sterile surgical fashion with chlorhexidine. I then made an infraumbilical curvilinear incision, and then dissected down to fascia. I grasped the umbilical stalk sequentially with Josiah clamps, until I got to the base of the umbilical stalk. I then gained entry to the peritoneal cavity utilizing Richardson technique. I then placed a fascia retention suture in [id number] fashion with an 0 Vicryl. I then placed the Richardson cannula and insufflated the peritoneal cavity to 15 mmHg. Patient tolerated insufflation. Camera was then inserted and entry site was surveyed, no injuries noted. I then placed 3 additional 5 mm ports at the epigastric area, the right midclavicular area below the ribs, and the right flank. The patient was then position in the reverse Trendelenburg position with right side up. Gallbladder dome was grasped with D&G graspers and elevated towards the right shoulder. Gallbladder was acutely inflamed with omentum containing loops of bowel was draped over the gallbladder. I then carefully dissected the omentum and the loops of bowel off of the gallbladder. I then identify the infundibulum of the gallbladder and grasped it with a 2nd D&G grasper. I then proceeded to open the peritoneum along the inferior border of the gallbladder on either side. I then identified Calot triangle. Calot triangle was fully skeletonized and 2 structures were visualized entering the gallbladder, the cystic duct and the cystic artery. Critical view was obtained. Artery was then double clipped proximally and once distally. The duct was then triple clipped proximally and once distally. I then transected both artery and duct. I then proceeded to dissect the gallbladder off of the liver plate with the electrocautery device. Once the gallbladder was completely off of the liver it was placed in the Endo-Catch bag and removed from the peritoneal cavity through the umbilical site. Gallbladder fossa was surveyed there was no bleeding. There was no bile spillage. At this point the surgery was concluded. 5 mm trocars were removed under direct vision. The fascia at the umbilical site was closed with the previously-placed 0 Vicryl stitch. All skin sites were closed with 4-0 Monocryl and Dermabond. Marcaine 0.25% was used as local anesthetic. All counts complete and correct at the end of the procedure. Patient was transferred to the PACU in stable condition Specimen: Gallbladder and contents Condition at Discharge: Stable Final Diagnosis/Problems List Acute calculus cholecystitis s/p lap cholecystectomy Symptomatic cholelithiasis Polysubstance abuse ( cocaine, fentanyl, marijuana ) Discharge Disposition: Home Discharge Instruct/Medications Diet: Regular Activity: Light activity Follow Up/Referral: Follow-up with PCP follow up with surgery in 2 weeks Medications: augmentin for 5 days miralax 1 packet daily for 1 week norco 5/325 every 6 hours for severe pain,as needed Scheduled Amoxicillin & Pot Clavulanate (Augmentin Tablet), 875 MG PO BID Pantoprazole Sodium Sesquihydr (Protonix), 40 MG PO DAILY Scheduled PRN Acetaminophen (Acetaminophen), 650 MG PO Q8HP PRN Hydrocodone-Acetaminophen (Hydrocodone Bitartrate/AC 5-325 mg), 1 TAB PO QIDP PRN Ibuprofen Micronized (Motrin Tablet), 600 MG PO TIDPRN PRN Discharge Statement: "Patient was advised to return to the ER or call 911 if any headaches, dizziness, shortness of breath, chest pain, abdominal pain, bleeding, fevers, or worsening of medical condition. Patient was counseled about treatment plan, medications, possible side effects, patientverbalized understanding. All questions were answered to the best of my ability. This discharge took greater then 30 minutes in planning, reviewing documentation, counseling the patient, and discussing with other team members." ASSESSMENT ASSESSMENT Assessment acute cholecystitis ALBERT CEDILLO RESIDENT Jul 22, 2025 13:26
[2025-07-22 14:55] VITALS: BP 105/73; PULSE 56; RESP 14; TEMP 36.2; O2SAT 99
== END 2025-07-22 15:21 | disposition home or self-care (01) | DRG 263 ==
LOC: EDBD 11:15 → ER 11:15 → OVERFLOW 15:19 → EEVIPCON 15:19 → WEST WING 07-21 16:44
PROVIDERS: ADMIT Student in an Organized Health Care Education/Training Program; ATTEND Student in an Organized Health Care Education/Training Program
PROC: 0FT44ZZ Resection of Gallbladder, Percutaneous Endoscopic Approach (ICD-10-PCS; principal; 2025-07-21 12:28)
DX: K80.00 Calculus of gallbladder with acute cholecystitis without obstruction (principal); F11.10 Opioid abuse, uncomplicated; F19.10 Other psychoactive substance abuse, uncomplicated; F14.10 Cocaine abuse, uncomplicated; F12.10 Cannabis abuse, uncomplicated; K66.0 Peritoneal adhesions (postprocedural) (postinfection); Z90.49 Acquired absence of other specified parts of digestive tract
CPT/HCPCS: 36415; 71045; 74176; 76705; 80048; 80053; 80074; 80307; 81001; 83690; 85025; 85610; G0378; J0131; J0330; J1100; J2405; J2704; J3490